=== PATIENT | female | born 1980 | race Caucasian/White ===

== ENCOUNTER 2019-07-31 12:12 | Inpatient (IN) | payer OTHER ==
[~2019-07-31] VITALS: Ht 162.6 cm; Wt 132.0 kg
[~2019-07-31 12:12] MED LIST: ALBUTEROL2.5 MG/3 M IH; CIPRO500 MG PO; Flagyl PO; KETO10TA2 PO
[2019-07-31] MEDS ORDERED: ZOLOFT20 MG/1 ML PO (13:04)
[2019-07-31] MEDS ORDERED: ACETAMINOPHEN500 M2 PO (13:05)
[2019-07-31] MEDS ORDERED: ADVIL200 MG PO (13:05)
[2019-07-31] MEDS ORDERED: RESTORIL15 MG PO (13:05)
[2019-07-31] MEDS ORDERED: NORFLEX (13:06)
[2019-07-31] MEDS ORDERED: NAPRELAN750 MG PO (13:06)
[2019-07-31] MEDS ORDERED: PIRIDIUM (13:07)
[2019-07-31] MEDS ORDERED: SEPTRA (13:07)
[2019-08-03] MEDS ORDERED: CEFTRIAXONE2 GM IV (09:56)
[2019-08-03] MEDS ORDERED: INTEGRA PLUS C1 EACH PO (10:54)
== END 2019-08-03 19:39 | disposition home or self-care (01) | DRG 690 ==
LOC: ER 12:12 → SEC-K 21:45 → MEDJ 08-01 11:43
PROVIDERS: ADMIT Internal Medicine
PROC: BT43ZZZ Ultrasonography of Bilateral Kidneys (ICD-10-PCS; principal; 2019-07-31)
DX: N10 Acute pyelonephritis (principal); R31.9 Hematuria, unspecified; D64.9 Anemia, unspecified; E86.0 Dehydration; N20.0 Calculus of kidney